=== PATIENT | female | born 1995 | race Caucasian/White ===

== ENCOUNTER 2018-11-14 13:33 | Emergency (ER) | payer OTHER ==
[2018-11-14] MEDS ORDERED: METOCLOPRAMIDE HCL INJ/PF 10 MG/2 ML SDV IV ONE (14:22)
[2018-11-14] MEDS ORDERED: KETOROLAC TROMETHAMINE INJ/PF 30 MG/1 ML SDV IV ONE (14:22)
[2018-11-14] MEDS ORDERED: DIPHENHYDRAMINE HCL 50 MG/ML VIAL IV ONE (14:23)
[2018-11-14 14:35] LABS: ANION GAP 8 (5-19); BLOOD UREA NITROGEN 16 mg/dL (7-20); CALCIUM 9.6 mg/dL (8.4-10.2); CARBON DIOXIDE 29 mmol/L (22-30); CHLORIDE 105 mmol/L (98-107); GLUCOSE 97 mg/dL (75-110); POTASSIUM 4.3 mmol/L (3.6-5.0); SODIUM 141.5 mmol/L (137-145)
--- NOTE | 2018-11-14 14:52 | RADIOLOGY REPORT (SQ) ---
EXAM DESCRIPTION: CT HEAD WITHOUT COMPLETED DATE/TIME: 11/14/2018 2:35 pm REASON FOR STUDY: headache COMPARISON: None. TECHNIQUE: Axial images acquired through the brain without intravenous contrast. Images reviewed wi th bone, brain and subdural windows. Additional sagittal and coronal reconstructions were generated. Images stored on PACS. All CT scanners at this facility use dose modulation, iterative reconstruction, and/or weight based d osing when appropriate to reduce radiation dose to as low as reasonably achievable (ALARA). [facility]: Dose Right [facility]: CareDose [facility]: Dose Right [facility]: Teradose 4D [facility]: Blend Systems RADIATION DOSE: CT Rad equipment meets quality standard of care and radiation dose reduction techniq ues were employed. CTDIvol: 53.2 mGy. DLP: 1097 mGy-cm. mGy. LIMITATIONS: None. FINDINGS: VENTRICLES: Normal size and contour. CEREBRUM: No masses. No hemorrhage. No midline shift. No evidence for acute infarction. Normal gra y/white matter differentiation. No areas of low density in the white matter. CEREBELLUM: No masses. No hemorrhage. No alteration of density. No evidence for acute infarction. EXTRAAXIAL SPACES: No fluid collections. No masses. ORBITS AND GLOBE: No intra- or extraconal masses. Normal contour of globe without masses. CALVARIUM: No fracture. PARANASAL SINUSES: No fluid or mucosal thickening. SOFT TISSUES: No mass or hematoma. OTHER: No other significant finding. IMPRESSION: No acute intracranial pathology. No noncontrast CT findings to explain headache. EVIDENCE OF ACUTE STROKE: NO. COMMENT: Quality ID # [id number]: Final reports with documentation of one or more dose reduction techniques (e.g., Automated exposure control, adjustment of the mA and/or kV according to patient size, use of iterative reconstruction technique) TECHNICAL DOCUMENTATION: JOB ID: [id number] [employer]- All Rights Reserved Reading location - IP/workstation name: [email or web address]
--- NOTE | 2018-11-14 15:04 | ER Document Report ---
ED General - General Chief Complaint: Headache Stated Complaint: HEAD AND NECK PAIN Time Seen by Provider: 11/14/18 14:09 Mode of Arrival: Ambulatory Information source: Patient, Relative TRAVEL OUTSIDE OF THE [place] IN LAST 30 DAYS: No - HPI Patient complains to provider of: Headache Onset: Other - This is a healthy 23-year-old female who is had a single episode of migraine in the past that presents for evaluation of frontal headache which progressed to some blurring of vision to while shopping. Thereafter the pain seemed to gradually intensify until it made it difficult for her to stand, she thereafter tried to drink some water and eat something so that she could take an ibuprofen at which time she vomited once. She denies recent illnesses, fevers, chills, lightheadedness diarrhea constipation dysuria is not generally someone who has headaches. She did not take anything to try to make this better. Her notes that she has been under an intense amount of stress lately and that he is concerned that this could be related to her issue. - Related Data Allergies/Adverse Reactions: No Known Allergies Allergy (Verified 11/14/18 13:34) Past Medical History - General Information source: Patient, Relative - Social History Smoking Status: Never Smoker Chew tobacco use (# tins/day): No Frequency of alcohol use: None Drug Abuse: None Family History: None Patient has suicidal ideation: No Patient has homicidal ideation: No Renal/ Medical History: Denies: Hx Peritoneal Dialysis Past Surgical History: Reports: Hx Appendectomy, Hx Orthopedic Surgery Review of Systems - Review of Systems -: Yes All other systems reviewed and negative Physical Exam - Vital signs Vitals: Temp Pulse Resp BP Pulse Ox 97.9 F 70 12 87/54 L 99 11/14/18 13:38 11/14/18 13:38 11/14/18 13:38 11/14/18 13:38 11/14/18 13:38 Interpretation: Normal - General In distress: Mild - HEENT Head: Normocephalic, Atraumatic Eyes: Normal Pupils: PERRL - Respiratory Respiratory status: No respiratory distress Chest status: Nontender Breath sounds: Normal Chest palpation: Normal - Cardiovascular Rhythm: Regular Heart sounds: Normal auscultation Murmur: No - Abdominal Inspection: Normal Distension: No distension Bowel sounds: Normal Tenderness: Nontender Organomegaly: No organomegaly - Back Back: Normal, Nontender - Extremities General upper extremity: Normal inspection, Nontender, Normal color, Normal ROM, Normal temperature General lower extremity: Normal inspection, Nontender, Normal color, Normal ROM, Normal temperature, Normal weight bearing. No: Malcom's sign - Neurological Neuro grossly intact: Yes Cognition: Normal Orientation: AAOx4 [place] Coma Scale Eye Opening: Spontaneous Emily Coma Scale Verbal: Oriented [place] Coma Scale Motor: Obeys Commands [place] Coma Scale Total: 15 Speech: Normal Motor strength normal: LUE, RUE, LLE, RLE Sensory: Normal - Psychological Associated symptoms: Normal affect, Normal mood - Skin Skin Temperature: Warm Skin Moisture: Dry Skin Color: Normal Course - Re-evaluation Re-evalutation: 11/14/18 18:39 This is a healthy 23-year-old female who presents for headache which caused her to have difficulty seeing. Her neurologic examination is benign at this time. As she had an onset of headache and she is not normally a person who has headaches within the last [address] a [address] of the head. Believe that this is unlikely to represent subarachnoid hemorrhage however will consider. We will administer migraine cocktail to try and help with headache. We will obtain a chemistry for this patient in case of needing further diagnostics. Noncontrasted CT of the head demonstrates no obvious abnormality. This essentially makes the likelihood of subarachnoid hemorrhage less than 0.5%. Believe that is exceptionally unlikely this represents a subarachnoid hemorrhage. Patient's feeling better after migraine cocktail. She is not taking any oral contraceptives of or hormone she is got no risk factors for thromboembolic disease do not believe this represents her dural sinus thrombus. As the patient is feeling better able tolerate p.o. neurologically intact at this time we will plan for her to undergo discharge with return precautions and follow-up will give a prescription for Fioricet as needed for migraine headache. Will be encouraged follow-up with her primary physician regarding her care today. - Vital Signs Vital signs: Temp Pulse Resp BP Pulse Ox 97.9 F 70 13 112/59 L 99 11/14/18 13:38 11/14/18 13:38 11/14/18 17:17 11/14/18 17:17 11/14/18 17:17 - Laboratory Result Diagrams: 11/14/18 13:57 Laboratory results interpreted by me: 11/14/18 14:55 Urine Blood LARGE H Discharge - Discharge Clinical Impression: Migraine Qualifiers: Migraine type: unspecified Status migrainosus presence: without status migrainosus Intractability: not intractable Qualified Code(s): G43.909 - Migraine, unspecified, not intractable, without status migrainosus Headache Qualifiers: Headache type: unspecified Headache chronicity pattern: unspecified pattern Intractability: not intractable Qualified Code(s): R51 - Headache Condition: Good Disposition: HOME, SELF-CARE Instructions: Antinausea Medication ([facility]), Headache ([facility]) Additional Instructions: You were seen today in the emergency department for your headache. You had an evaluation including a physical exam a CAT scan of your head and some blood work. I think that your headache may be a migraine. I think that your likely to improve if you have a little less stress, can relax. Use the medication prescribed you only as needed for headaches. Otherwise he can use your normal medications. Please return in case you have any worsening vomiting, focal numbness or weakness, chest pain or other symptoms. Prescriptions: Butalb/Acetaminophen/Caffeine [Fioricet (50-325-40 mg) Tablet] 1 - 2 tab PO Q4H #30 tab
[2018-11-14 15:42] LABS: APPEARANCE,URINE CLEAR; BILIRUBIN,URINE NEGATIVE (NEGATIVE); COLOR,URINE STRAW; GLUCOSE, URINE NEGATIVE (NEGATIVE); KETONES,URINE NEGATIVE (NEGATIVE); LEUKOCYTE ESTERASE,URINE NEGATIVE (NEGATIVE); NITRITE,URINE NEGATIVE (NEGATIVE); PROTEIN,URINE NEGATIVE (NEGATIVE); URINE SPECIFIC GRAVITY 1.009; UROBILINOGEN,URINE NEGATIVE mg/dL (<2.0)
[2018-11-14 17:24] VITALS: BP 112/59
== END 2018-11-14 17:24 | disposition home or self-care (01) ==
LOC: EDBD → ER 13:33
DX: G43.909 Migraine, unspecified, not intractable, without status migrainosus (principal); M54.2 Cervicalgia
CPT/HCPCS: 99284; 96374; 96375; 36415; 81025; 80048; 81001; 70450; J1200; J1885; J2765